=== PATIENT | female | born 1950 | race Caucasian/White ===

== ENCOUNTER 2019-08-03 12:02 | Day surgery (SDC) | payer MEDICARE, SELFPAY ==
[2019-08-03] VITALS (7 sets, daily range): BP systolic 83–110; BP diastolic 55–72; PULSE 62–80; RESP 12–20; TEMP 36.1–36.7; O2SAT 98–100; BMI 24.1
[2019-08-03] MEDS: SODIUM CHLORIDE 0.9% 1,000 ML 200 ML IV (12:22)
--- NOTE | 2019-08-03 13:03 | PM.HP.1 ---
History of Present Illness History of Present Illness Date Patient Seen: 08/03/19 Time Patient Seen: 13:04 Chief complaint: [id number] SCREENING COLONOSCOPY Narrative: 69-year-old white female here for a screening colonoscopy as had a prior colonoscopy many years ago no polyps were seen. Patient is completely asymptomatic. Patient History Family & Social History Social History: household members spouse Meds Home Medications and Allergies Home Medications Medication Instructions Recorded Confirmed Type gabapentin 300 mg PO BEDTIME 08/03/19 08/03/19 History progesterone micronized 75 mg PO QAM 08/03/19 08/03/19 History Allergies Allergy/AdvReac Type Severity Reaction Status Date / Time No Known Drug Allergies Allergy Verified 08/03/19 12:34 Review of Systems Review of Systems ROS Unobtainable: All systems reviewed & are unremarkable except as noted in HPI and below Exam Vital Signs (past 8 hours): - 08/03/19 12:27 Temperature 98.1 F Pulse Rate 78 Respiratory Rate 20 Blood Pressure 110/72 Pulse Oximetry 99 Oxygen Delivery Method Room Air Narrative Exam Narrative: Patient is alert and oriented and comfortable resting in her bed Lungs are clear Heart regular rhythm no murmur Abdomen soft nontender no masses Rectal to be done at colonoscopy Assessment & Plan Assessment & Plan narrative: Patient is here for screening colonoscopy has no unanswered questions.
[2019-08-03] MEDS: MIDAZOLAM 5 MG/5 ML VIAL IV (13:31)
[2019-08-03] MEDS: fentaNYL 250 MCG/5 ML INJ IV (13:31)
--- NOTE | 2019-08-03 13:32 | PM.OP.ENDO ---
Operative Date/Time/Diagnoses Date of procedure: 08/03/19 Time of procedure: 13:32 Pre-op diagnosis: Screening colonoscopy Post-op diagnosis: same Procedure & Clinicians Study performed: Total colonoscopy to the cecum Same procedure as scheduled: Yes Surgeon: Conrad Ochoa Procedure Notes SCOAP/Timeout: This was done Procedure in detail: The patient was properly identified during surgical pause the flexible fiberoptic colonoscope inserted transanally to the cecum. The patient has a very tortuous sigmoid making this a rather difficult colonoscopy however I was able to pass the scope safely to the cecum. There are no polyps no tumors no ulcerations no diverticulosis patient has a normal exam. Procedure was well tolerated with 4 mg of Versed and 150 micro g of fentanyl Scope withdrawal time: 10 Sedation minutes: 25 Specimen(s): none sent Complications: none Post-procedure Recommendations: Colonscopy in 10 years Disposition: PACU
== END 2019-08-03 14:10 | disposition home or self-care (01) ==
PROVIDERS: PCP Internal Medicine; Visit Provider Surgery
PROC: 0DJD8ZZ Inspection of Lower Intestinal Tract, Via Natural or Artificial Opening Endoscopic (ICD-10-PCS; CPT 45378; principal; 2019-08-03 13:00)
DX: Z12.11 Encounter for screening for malignant neoplasm of colon (principal)
CPT/HCPCS: G0121; 99152; J2250; J3010

== ENCOUNTER → 2020-02-11 08:24 | Outpatient (CLI) | payer MEDICARE, SELFPAY ==
--- NOTE | 2020-02-11 | DI.MG.S_ITS ---
BILATERAL DIGITAL SCREENING MAMMOGRAM 3D/2D WITH CAD: 02/11/2020 CLINICAL: Routine screening. Family history of breast cancer. Comparison is made to exams dated: 01/22/2016 mammogram, 11/25/2014 mammogram, and 12/10/2013 mammogram - [facility]. The tissue of both breasts is heterogeneously dense. This may lower the sensitivity of mammography. Current study was also evaluated with a Computer Aided Detection (CAD) system. No significant masses, calcifications, or other findings are seen in either breast. There has been no significant interval change. IMPRESSION: NEGATIVE There is no mammographic evidence of malignancy. A 1 year screening mammogram is recommended. This exam was interpreted at Station ID: [id number]. NOTE: For mammograms, a report in lay terms will be sent to the patient. Approximately 15% of breast malignancies will not be visualized mammographically. In the management of a palpable breast mass, a negative mammogram must not discourage biopsy of a clinically suspicious lesion. Electronically Signed By: Yokasta wong/nicole:02/11/2020 10:57:01 letter sent: Normal Exam ACR BI-RADS Category 1: Negative 3341F
== END ==
PROVIDERS: PCP Internal Medicine; Referring Provider Internal Medicine; Visit Provider Internal Medicine
DX: Z12.31 Encounter for screening mammogram for malignant neoplasm of breast (principal); Z80.3 Family history of malignant neoplasm of breast
CPT/HCPCS: 77063; 77067

== ENCOUNTER → 2020-08-26 14:21 | Outpatient (CLI) | payer OTHER, SELFPAY ==
[2020-08-26 15:47] LABS: Progesterone, Total 7.07 ng/mL
== END ==
PROVIDERS: PCP Internal Medicine; Referring Provider Nurse Practitioner Family; Visit Provider Nurse Practitioner Family
DX: N95.1 Menopausal and female climacteric states (principal); Z79.899 Other long term (current) drug therapy
CPT/HCPCS: 36415; 84144

== ENCOUNTER → 2022-05-27 08:55 | Outpatient (CLI) | payer OTHER, SELFPAY ==
[2022-05-27 10:39] LABS: COVID19 -Nasal RAPID Negative (Negative)
--- NOTE | 2022-05-27 20:15 | DI.NM.S_ITS ---
DATE OF SERVICE: 05/27/2022 PROCEDURE: Exercise perfusion study. INDICATION: Exertional chest pain with concern for angina pectoris. RADIOPHARMACEUTICAL: 25.6 millicurie technetium-99m Myoview IV was injected at stress and 12.4 millicurie technetium-99m Myoview IV was injected at rest. CARDIAC STRESS: The patient underwent exercise perfusion study under the supervision of an attending staff. The patient walked on Albin protocol for 9 minutes and 08 seconds, achieved maximum heart rate of 161, which was 107 percent of target heart rate. There was normal hemodynamic response. Resting blood pressure 114/66 and peak blood pressure 150/70 mmHg. Achieved 10.1 METs of workload. BETHANY -53 percent. Baseline rhythm was sinus. During exercise, there were significant artifacts, making EKG uninterpretable. However, in the immediate recovery, there were some nonspecific ST changes without any concerning ischemic changes. There were no significant complex arrhythmias seen. During exercise, patient had chest heaviness, which was on a scale of 1 to 10, 5 in intensity, and resolved 3 minutes into the recovery. RAW DATA: Breast shadow seen. GATED STUDY: Resting LV ejection fraction 83 and stress LV ejection fraction 96 percent without any wall motion abnormalities. Resting end-diastolic volume 53 mL. TID ratio 0.76, which is within normal limits. Lung/heart ratio 0.49, which is abnormal. MYOCARDIAL PERFUSION SCAN: Stress supine, resting supine and stress prone images were compared to each other. Stress supine images revealed small size, mildly decreased perfusion of distal anterior wall and distal anteroseptum. Resting supine images revealed small size, mildly decreased perfusion of distal anterior wall and distal anteroseptum, as well as apex. During stress prone images, there was significant improvement, however patient remained to have mildly decreased perfusion of distal anteroseptum. Distal anterior wall improved. The stress prone images do not show any significant infarction pattern. No reversible ischemia. CONCLUSION: I will call this study likely a normal myocardial perfusion study with evidence of breast tissue attenuation artifact, which got improved during the stress prone images. Excellent exercise tolerance. Functional aerobic impairment -53 percent. Normal hemodynamic response. The patient has chest tightness during exercise without any significant arrhythmias. Electrocardiogram at that time uninterpretable. However, in the immediate recovery, no convincing ischemic changes seen. Hyperdynamic left ventricle. Transient ischemic dilatation ratio within normal limits. Lung/heart ratio mildly abnormal. Consider 2D echo to make sure there is no diastolic dysfunction or valvular pathology. As far as perfusion scan is concerned, this is a low-risk myocardial perfusion scan. Krystal Maddox - Cristal/bela doc#: [id number]/job#: [id number] dd: 05/27/2022 16:36:00 dt: 05/27/2022 20:07:00 DICTATING MD/COPIES TO: Sabine Caro MD COPIES MNE: CASSIE;
== END ==
PROVIDERS: PCP Internal Medicine; Referring Provider Internal Medicine Cardiovascular Disease; Visit Provider Internal Medicine Cardiovascular Disease
DX: R07.9 Chest pain, unspecified (principal); Z20.822 Contact with and (suspected) exposure to COVID-19
CPT/HCPCS: 78452; 87635; 93017; C9803; A9502

== ENCOUNTER → 2022-05-29 10:46 | Outpatient (CLI) | payer OTHER, SELFPAY ==
--- NOTE | 2022-05-29 10:50 | DI.MG.S_ITS ---
BILATERAL DIGITAL SCREENING MAMMOGRAM 3D/2D WITH CAD: 05/29/2022 CLINICAL: Routine screening. Family history of breast cancer. Comparison is made to exams dated: 02/11/2020 mammogram - [facility], 12/10/2013 mammogram - [facility], and 01/22/2016 mammogram - [facility]. Both breasts are heterogeneously dense, which may obscure small masses (category c / 51-75% glandular tissue). Current study was also evaluated with a Computer Aided Detection (CAD) system. No significant masses, calcifications, or other findings are seen in either breast. There has been no significant interval change. IMPRESSION: NEGATIVE There is no mammographic evidence of malignancy. A 1 year screening mammogram is recommended. Based on the Tyrer Cuzick model (a risk assessment model) the patient's lifetime risk is 11.3% and her 10 year risk is 7.3%. According to the ACR, ACS, and NCCN guidelines, an annual breast MRI exam along with mammogram is recommended if the patient's lifetime risk is 20% or greater. This exam was interpreted at Station ID: [id number]. NOTE: For mammograms, a report in lay terms will be sent to the patient. Approximately 15% of breast malignancies will not be visualized mammographically. In the management of a palpable breast mass, a negative mammogram must not discourage biopsy of a clinically suspicious lesion. Electronically Signed By: Ranjit holcomb/nicole:05/31/2022 12:01:01 letter sent: Normal Exam ACR BI-RADS Category 1: Negative 3341F
== END ==
PROVIDERS: PCP Internal Medicine; Referring Provider Physician Assistant; Visit Provider Physician Assistant
DX: Z12.31 Encounter for screening mammogram for malignant neoplasm of breast (principal); Z80.3 Family history of malignant neoplasm of breast
CPT/HCPCS: 77063; 77067

== ENCOUNTER → 2023-04-05 14:53 | Outpatient (CLI) | payer OTHER, SELFPAY ==
--- NOTE | 2023-04-05 | DI.RAD.S_ITS ---
PROCEDURE: XR FOOT RT MIN 3V INDICATIONS: right foot pain, 3rd metatarsal head TECHNIQUE: 3 views of the foot were acquired. COMPARISON: None. FINDINGS: Bones: No fractures or dislocations. No suspicious bony lesions. Soft tissues: No tibiotalar joint effusion. Achilles tendon appears normal. IMPRESSION: No fracture. No osseous lesion. If symptoms and/or clinical suspicion for pathology persists, further assessment with repeat radiographs (7-10 days) or advanced imaging (e.g. CT, MRI or bone scan) should be considered. Dictated by: Ariadna Ibarra MD, PhD on 04/05/2023 at 15:44 Approved by: Ariadna Ibarra MD, PhD on 04/05/2023 at 15:44
== END ==
PROVIDERS: PCP Physician Assistant; Referring Provider Internal Medicine; Visit Provider Internal Medicine
DX: M79.671 Pain in right foot (principal)
CPT/HCPCS: 73630

== ENCOUNTER → 2023-07-26 08:23 | Outpatient (CLI) | payer OTHER, SELFPAY ==
--- NOTE | 2023-07-26 | DI.MG.S_ITS ---
BILATERAL DIGITAL SCREENING MAMMOGRAM 3D/2D WITH CAD: 07/26/2023 CLINICAL: Routine screening. Family history of breast cancer. Comparison is made to exams dated: 05/29/2022 mammogram, 02/11/2020 mammogram - [facility], and 01/22/2016 mammogram - [facility]. Both breasts are heterogeneously dense, which may obscure small masses (category c / 51-75% glandular tissue). Current study was also evaluated with a Computer Aided Detection (CAD) system. No significant masses, calcifications, or other findings are seen in either breast. There has been no significant interval change. IMPRESSION: NEGATIVE There is no mammographic evidence of malignancy. A 1 year screening mammogram is recommended. Based on the Tyrer Cuzick model (a risk assessment model) the patient's lifetime risk is 10.4% and her 10 year risk is 7.2%. According to the ACR, ACS, and NCCN guidelines, an annual breast MRI exam along with mammogram is recommended if the patient's lifetime risk is 20% or greater. This exam was interpreted at Station ID: [id number]. NOTE: For mammograms, a report in lay terms will be sent to the patient. Approximately 15% of breast malignancies will not be visualized mammographically. In the management of a palpable breast mass, a negative mammogram must not discourage biopsy of a clinically suspicious lesion. Electronically Signed By: Yokasta wong/nicole:07/26/2023 11:16:19 letter sent: Normal Exam ACR BI-RADS Category 1: Negative 3341F
== END ==
PROVIDERS: PCP Physician Assistant; Referring Provider Physician Assistant; Visit Provider Physician Assistant
DX: Z12.31 Encounter for screening mammogram for malignant neoplasm of breast (principal); Z80.3 Family history of malignant neoplasm of breast
CPT/HCPCS: 77063; 77067

== ENCOUNTER → 2024-03-09 11:12 | Outpatient (CLI) | payer MEDICARE, SELFPAY ==
[2024-03-09 12:57] LABS: TSH w/ Reflex to FT4 1.39 uIU/mL (0.47-4.68)
[2024-03-09 14:31] LABS: Vitamin D 25 Hydroxy (D3) 60.9 ng/mL (30.0-100.0)
[2024-03-10 09:56] LABS: Free T4, Direct Thyroxine 0.84 ng/dL (0.78-2.19)
[2024-03-13 06:05] LABS: Vitamin B6 77.4 ug/L (3.4-65.2)
== END ==
PROVIDERS: PCP Physician Assistant; Referring Provider Psychiatry & Neurology Neurology; Visit Provider Psychiatry & Neurology Neurology
DX: R20.2 Paresthesia of skin (principal); R20.8 Other disturbances of skin sensation
CPT/HCPCS: 36415; 82306; 84207; 84439; 84443